=== PATIENT | male | born 1985 | race Caucasian/White ===

== ENCOUNTER 2019-11-13 02:17 | Emergency (ER) | payer OTHER ==
[2019-11-13] MEDS ORDERED: Bacitracin 1 PK ONE (02:49)
[2019-11-13] MEDS ORDERED: Adacel (T-DAP) 0.5 ML SYRINGE ONE (02:53)
== END 2019-11-13 03:00 ==
LOC: MADERS 02:17
DX: S01.411A Laceration without foreign body of right cheek and temporomandibular area, initial encounter (principal); S01.01XA Laceration without foreign body of scalp, initial encounter; F17.210 Nicotine dependence, cigarettes, uncomplicated; X58.XXXA Exposure to other specified factors, initial encounter
CPT/HCPCS: 12002; 12011; 90471; 90715